=== PATIENT | male | born 1935 | race Asian ===

== ENCOUNTER 2016-11-29 14:56 | Emergency (ER) | payer OTHER ==
[~2016-11-29] VITALS: Ht 167.6 cm; Wt 75.0 kg
[~2016-11-29 14:56] MED LIST: AMLO-511 PO; DONE5TAB PO; LEVE250T2 PO; LOSA50TA37 PO; RISE35TA8 PO
[2016-11-29] MEDS ORDERED: TRAZ-144 PO (15:38)
[2016-11-29] MEDS ORDERED: SITA1TAB2 PO (15:38)
[2016-11-29] MEDS ORDERED: MEMA14CA PO (15:38)
[2016-11-29] MEDS ORDERED: ATOR10TA84 PO (15:38)
[2016-11-29 15:41] LABS: GLUCOSE,POINT OF CARE 188 MG/DL (70-110)
[2016-11-29] MEDS ORDERED: TIOT185 IH (15:41)
[2016-11-29] MEDS ORDERED: AZIT250T6 PO (15:41)
[2016-11-29] MEDS ORDERED: PRED20 PO (15:41)
[2016-11-29] MEDS ORDERED: DUTA.5 PO (15:41)
[2016-11-29] MEDS ORDERED: IPRATROPIUM BROMIDE 0.5 MG/2.5 ML NEB SOLUTION NEB ONE (19:15)
[2016-11-29] MEDS ORDERED: ALBUTEROL SULFATE 5 MG/ML 20 ML NEB SOLN [BULK] NEB ONE (19:15)
[2016-11-29 19:30] VITALS: BP 125/65
[2016-11-29 19:30] LABS: BASOPHILS % (AUTO) 0.1 % (0.0-2.0); EOSINOPHILS % (AUTO) 0.1 % (1.0-6.0); HEMATOCRIT 33.5 % (41-53); HEMOGLOBIN 11.4 g/dL (13.5-17.5); LYMPHOCYTES # (AUTO) 0.9 K/uL (1.0-4.8); LYMPHOCYTES % (AUTO) 11.1 % (22.0-44.0); MEAN CORPUSCULAR HEMOGLOBIN 31.5 pg (26.0-34.0); MEAN CORPUSCULAR VOLUME 93 fL (80-100); MONOCYTES # (AUTO) 0.1 K/uL (0.1-1.0); MONOCYTES % (AUTO) 1.7 % (2.0-9.0); NEUTROPHILS # (AUTO) 6.8 K/uL (1.8-7.7); PLATELET COUNT (AUTO) 202 K/uL (150-450); RED BLOOD CELL COUNT(AUTO) 3.62 MIL/uL (4.50-5.90); RED CELL DISTRIBUTION WIDTH 12.9 % (11.5-14.5); WHITE BLOOD COUNT (AUTO) 7.9 K/uL (4.5-11.0)
[2016-11-29 19:37] LABS: CALCIUM, TOTAL 9.2 mg/dL (8.8-10.5); CREATININE 1.63 mg/dL (0.60-1.30); POTASSIUM 4.2 mmol/L (3.5-5.1)
[2016-11-29 19:53] LABS: RBC MORPHOLOGY COMMENT NORMAL RBC MORPH
== END 2016-11-29 20:00 | disposition home or self-care (01) ==
LOC: EMS 15:00
DX: J40 Bronchitis, not specified as acute or chronic (principal); E11.65 Type 2 diabetes mellitus with hyperglycemia; I11.0 Hypertensive heart disease with heart failure; I25.10 Atherosclerotic heart disease of native coronary artery without angina pectoris; E78.00 Pure hypercholesterolemia, unspecified; K21.9 Gastro-esophageal reflux disease without esophagitis; Z87.891 Personal history of nicotine dependence
CPT/HCPCS: 71020; 82962; 93005; 94640; 99285